=== PATIENT | female | born 1950 | race Caucasian/White ===

== ENCOUNTER → 2023-06-04 13:05 | Outpatient (REF) | payer MEDICARE, SELFPAY | LOC: RAD 13:05 | PROVIDERS: ATTENDING PHYSICIAN Nurse Practitioner Adult Health | DX: Z12.2 Encounter for screening for malignant neoplasm of respiratory organs (principal); F17.290 Nicotine dependence, other tobacco product, uncomplicated; R91.1 Solitary pulmonary nodule | CPT/HCPCS: 71271 ==

== ENCOUNTER → 2023-06-20 14:27 | Outpatient (REF) | payer MEDICARE, SELFPAY | LOC: WDC 14:27 | PROVIDERS: ATTENDING PHYSICIAN Nurse Practitioner Adult Health | DX: Z12.31 Encounter for screening mammogram for malignant neoplasm of breast (principal) | CPT/HCPCS: 77063; 77067 ==

== ENCOUNTER → 2023-07-11 06:27 | Day surgery (SDC) | payer MEDICARE, SELFPAY | LOC: GI 06:27 | PROVIDERS: ATTENDING PHYSICIAN Internal Medicine | DX: Z12.11 Encounter for screening for malignant neoplasm of colon (principal); D12.2 Benign neoplasm of ascending colon; D12.3 Benign neoplasm of transverse colon; D12.4 Benign neoplasm of descending colon; D12.5 Benign neoplasm of sigmoid colon; K57.30 Diverticulosis of large intestine without perforation or abscess without bleeding; Z86.010 Personal history of colon polyps | CPT/HCPCS: 45390; 88305 ==

== ENCOUNTER → 2023-08-11 07:04 | Outpatient (REF) | payer MEDICARE, SELFPAY | LOC: RAD 07:04 | PROVIDERS: ATTENDING PHYSICIAN Internal Medicine Critical Care Medicine; FAMILY PHYSICIAN Nurse Practitioner Adult Health | DX: R91.8 Other nonspecific abnormal finding of lung field (principal) | CPT/HCPCS: 71250 ==

== ENCOUNTER 2023-08-18 06:29 | Day surgery (SDC) | payer MEDICARE, SELFPAY ==
[2023-08-11 06:40] VITALS: BMI 20.7
[2023-08-11 08:40] LABS: Hematocrit 42.8 % (37.0-47.0); Mean Corp Hgb Conc. 32.7 g/dL (33.0-37.0); Mean Corpuscular Hgb 30.8 pg (27.0-31.0); Mean Corpuscular Volume 94.3 fL (81.0-99.0); Mean Platelet Volume 9.2 fL (7.4-10.4); Platelet Count 257 10^3/uL (130-400); Red Blood Cell Count 4.54 10^6/uL (4.20-5.40); Red Cell Dist. Width 13.1 % (11.5-14.5); White Blood Cell Count 8.4 10^3/uL (4.8-10.8)
[2023-08-11 09:04] LABS: INR 0.94; PT 12.4 Sec (11.4-14.6)
[2023-08-11 09:05] LABS: APTT 34.3 Sec (23.4-35.0)
[2023-08-11 09:10] LABS: Blood Urea Nitrogen 11 mg/dl (7-17); Calcium 9.2 mg/dl (8.4-10.2); Carbon Dioxide 30 mmol/L (22-30); Chloride 102 mmol/L (98-107); Estimated Creatinine Clearance 64 ml/min; Glucose 82 mg/dl (70-99); Potassium 4.3 mmol/L (3.5-5.1); Sodium 138 mmol/L (135-145); eGFR > 60.00
[2023-08-18 07:17] VITALS: BP 136/66
[2023-08-18 07:28] VITALS: BMI 20.7
[2023-08-18 09:10] VITALS: BP 136/61; BP 136/66
[2023-08-18 09:15] VITALS: BP 124/74
[2023-08-18 09:50] VITALS: BP 130/58
[2023-08-18 10:05] VITALS: BP 131/51
[2023-08-18 10:20] VITALS: BP 133/61
== END 2023-08-18 10:22 | disposition home or self-care (01) ==
LOC: GI 06:29
PROVIDERS: ATTENDING PHYSICIAN Internal Medicine Critical Care Medicine; FAMILY PHYSICIAN Nurse Practitioner Adult Health
DX: J44.9 Chronic obstructive pulmonary disease, unspecified (principal); R91.1 Solitary pulmonary nodule; J98.4 Other disorders of lung
CPT/HCPCS: 31629; 31623; 31628; 31624; 31627; 31654; 88172; 88173; 88305; 36415; 71045; 76000; 80048; 85027; 85610; 85730; 87015; 87070; 87102; 87116; 87205; 88112; 88333; 93005; 94640; C1887

== ENCOUNTER → 2023-11-12 09:24 | Outpatient (REF) | payer MEDICARE, SELFPAY | LOC: RAD 09:24 | PROVIDERS: ATTENDING PHYSICIAN Internal Medicine Critical Care Medicine; FAMILY PHYSICIAN Nurse Practitioner Adult Health | DX: R91.8 Other nonspecific abnormal finding of lung field (principal) | CPT/HCPCS: 71250 ==

== ENCOUNTER → 2023-11-26 16:08 | Outpatient (REF) | payer MEDICARE, SELFPAY | LOC: PAVMRI 16:08 | PROVIDERS: ATTENDING PHYSICIAN Physician Assistant Surgical; FAMILY PHYSICIAN Nurse Practitioner Adult Health | DX: M17.12 Unilateral primary osteoarthritis, left knee (principal); M23.92 Unspecified internal derangement of left knee | CPT/HCPCS: 73721 ==

== ENCOUNTER → 2024-05-17 08:38 | Outpatient (REF) | payer MEDICARE, SELFPAY | LOC: RAD 08:38 | PROVIDERS: ATTENDING PHYSICIAN Internal Medicine Critical Care Medicine; FAMILY PHYSICIAN Nurse Practitioner Adult Health | DX: R91.8 Other nonspecific abnormal finding of lung field (principal) | CPT/HCPCS: 71250 ==

== ENCOUNTER → 2024-06-18 13:21 | Outpatient (REF) | payer MEDICARE, SELFPAY | LOC: RAD 13:21 | PROVIDERS: ATTENDING PHYSICIAN Nurse Practitioner Adult Health | DX: Z78.0 Asymptomatic menopausal state (principal); Z12.39 Encounter for other screening for malignant neoplasm of breast | CPT/HCPCS: 77080 ==